=== PATIENT | female | born 2000 | race Asian ===

== ENCOUNTER 2021-11-23 11:58 | Emergency (ER) | payer OTHER, SELFPAY ==
[2021-11-23 11:59] VITALS: BP 107/78; PULSE 98; RESP 16; TEMP 35.9; O2SAT 97; BMI 24.7
[2021-11-23] MEDS: Erythromycin Base 1 OPTH.TUBE 1 APPLIC RIGHT EYE (12:11)
--- NOTE | 2021-11-23 12:27 | EX.ED.VIS.EY ---
HPI History of Present Illness Chief Complaint: Eye Problem Narrative Narrative: 21-year-old female presenting with right eye irritation. She denies any traumatic injury. Patient states been itching for about 3 days. She is rubbing it some. She is not noted any drainage or discharge from the eye. She went to the nurse that school yesterday and had her eye irrigated with saline. She states he put Visine and it started to burn. No visual complaints. She has history of myopia surgery but cannot explain more than that. It was in the right eye. Noncontact wearer. PFSH PFSH Medical History no medical history Home Medications erythromycin 1 applic RIGHT EYE TID #3.5 g 11/23/21 [Rx Last Taken Unknown] ketorolac 1 drp EACH EYE Q8H PRN #3 ml 11/23/21 [Rx Last Taken Unknown] Allergy/AdvReac Type Severity Reaction Status Date / Time No Known Allergies Allergy Verified 11/23/21 11:59 Family History unable to obtain Surgical History no surgical history Social History Smoking Status: Never smoker ROS ROS ED Constitutional Constitutional ED: Denies chills or fever(s) Eyes Eyes: Reports other Details: Right eye irritation ; Denies blurry vision or diplopia ENT ENT ED: Denies rhinorrhea Cardiovascular Cardiovascular: Denies chest pain or palpitations Respiratory/Chest Respiratory/Chest: Denies cough or dyspnea Gastrointestinal Gastrointestinal: Denies abdominal pain, nausea or vomiting Genitourinary Genitourinary ED: Denies dysuria or hematuria Musculoskeletal Musculoskeletal: Denies arthralgias or myalgias Integumentary Denies rash Neurologic Neurologic: Denies headache(s) or paresthesias Psychiatric Psychiatric: Denies anxiety or depression EXAM Physical Exam Const Vital Signs: 11/23/21 11:59 Temperature 96.6 F L Temperature Source Temporal Pulse Rate 98 Respiratory Rate 16 Blood Pressure 107/78 Blood Pressure Mean 87 Pulse Ox 97 Oxygen Delivery Method Room Air Positive well nourished General Appearance ED: NAD HEENT atraumatic Nose: external nose normal and nares normal Eyes Visual Acuity: acuity normal Alignment: alignment normal Periorbital: periorbital findings normal Eyelid: eyelids normal Conjunctiva: conjunctiva normal Sclera: sclera abnormal Positive for right Details: scleral injection Details: Positive for medial and lateral Cornea: cornea normal Pupil: PERRL Direct Ophthalmoscopy: normal light reflex Resp normal respiratory effort Cardio regular rate and regular rhythm Neuro oriented x3 Sensorium / Orientation: alert Psych Mood & Affect: Negative for depressed or tearful MDM MDM MDM Narrative Medical decision making narrative: 21-year-old female with right eye irritation. Is nontraumatic. It does appear to be a little bit erythematous in the scleral region on the right and left to the cornea but there is no diffuse irritation. Lids and lashes are normal. Vision is normal. Patient concerned because his previous surgery and that I that she might have an infection. She will be started on erythromycin ophthalmic and given ketorolac eyedrops. She was given follow-up with ophthalmology. Impression: 1. Conjunctivitis Discharge Plan Triage Chief Complaint: Eye Problem ED Provider: Enrique Strickland Dx/Rx/DC Orders Instructions: ED Conjunctivitis, Bacterial Prescriptions: New erythromycin 5 mg/gram (0.5 %) ointment 1 applic RIGHT EYE TID Qty: 3.5 RF: 0 ketorolac 0.5 % drops 1 drp EACH EYE Q8H PRN (Reason: pain) Qty: 3 RF: 0 Primary Care Provider: Care Physician,No Primary Referrals: Drew Harris MD [STAFF PHYSICIAN] - 3-5 Days Disposition Disposition: Home, Self Care
== END 2021-11-23 12:32 | disposition home or self-care (01) ==
PROVIDERS: Emergency Provider Student in an Organized Health Care Education/Training Program; Visit Provider Student in an Organized Health Care Education/Training Program
DX: H10.9 Unspecified conjunctivitis (principal)
CPT/HCPCS: 99282